=== PATIENT | female | born 1990 | race Hispanic/Latino ===

== ENCOUNTER 2023-02-20 07:48 | Emergency (ER) | payer OTHER ==
[~2023-02-20] VITALS: Ht 152.4 cm; Wt 75.4 kg
[2023-02-20] MEDS ORDERED: KETOROLAC TROMETHAMINE 60 MG/2 ML VIAL ONE (09:04)
[2023-02-20] MEDS ORDERED: KETOROLAC TROMETHAMINE 60 MG/2 ML VIAL IM ONE (09:15)
[2023-02-20] MEDS ORDERED: DIAZEPAM INJ 5 MG/ML 2 ML IM ONE (10:00)
[2023-02-20] MEDS ORDERED: DIAZEPAM5 MG PO (10:19)
[2023-02-20] MEDS ORDERED: DICLOFENAC SODI75 MG PO (10:20)
[2023-02-20] MEDS ORDERED: ULTRAM 50MG50 MG PO (10:22)
[2023-02-20 10:45] VITALS: O2SAT 98
[2023-02-20] MEDS ORDERED: IBUPROFEN 600 MG TAB ONE (19:20)
[2023-02-20] MEDS ORDERED: ONDANSETRON HCL 4 MG ORAL DISINTEGRATING TAB ONE (19:20)
== END 2023-02-20 10:45 | disposition home or self-care (01) ==
LOC: FSED 08:04
DX: M43.6 Torticollis (principal); M62.838 Other muscle spasm; R50.9 Fever, unspecified; Z85.820 Personal history of malignant melanoma of skin
CPT/HCPCS: 96372; 99283; J1885; J3360; Q0162